=== PATIENT | male | born 1930 | race Caucasian/White ===

== ENCOUNTER 2018-02-03 21:00 | Emergency (ER) | payer MEDICARE, MEDICAID ==
[~2018-02-03] VITALS: Ht 162.6 cm; Wt 83.0 kg
[2018-02-03] MEDS ORDERED: METFORMIN HCL500 M1 ORAL (21:36)
[2018-02-03 21:45] VITALS: BP 128/66
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
[2018-02-03] MEDS ORDERED: IBUPROFEN600 MG ORAL (22:56)
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
[2018-02-03 23:00] VITALS: BP 128/66
== END 2018-02-03 23:00 | disposition home or self-care (01) ==
LOC: EMR 21:51
DX: S50.11XA Contusion of right forearm, initial encounter (principal); S60.221A Contusion of right hand, initial encounter; S09.90XA Unspecified injury of head, initial encounter; V49.40XA Driver injured in collision with unspecified motor vehicles in traffic accident, initial encounter; Y92.9 Unspecified place or not applicable
CPT/HCPCS: 70450; 99284